=== PATIENT | female | born 1960 | race Two or more races ===

== ENCOUNTER 2018-08-13 13:53 | Emergency (ER) | payer OTHER ==
[~2018-08-13] VITALS: Ht 162.6 cm; Wt 58.1 kg
[2018-08-13] MEDS ORDERED: TOPROL XL25 MG (15:00)
[2018-08-13] MEDS ORDERED: PLAVIX75 MG (15:00)
[2018-08-13] MEDS ORDERED: ATORVASTATIN CA10 MG (15:00)
[2018-08-13] MEDS ORDERED: ASPIR 8181 MG (15:00)
== END 2018-08-13 19:25 | disposition home or self-care (01) ==
LOC: ER 13:53
DX: R51 Headache (principal)